=== PATIENT | female | born 1995 | race African-American/Black ===

== ENCOUNTER 2016-08-12 15:08 | Emergency (ER) | payer SELFPAY ==
--- NOTE | 2016-08-12 15:45 | ER Document Report ---
ED Medical Screen (RME) - General Stated Complaint: THROAT PAIN Notes: Patient complains of sore throat and stuffy nose for 2 days. No fever. Occasional productive cough per patient. Patient states she wakes up with dry mouth and sore throat. His taken to help with symptoms. Pain since state she has had no period since May, home test negative. I have greeted and performed a rapid initial assessment of this patient. A comprehensive ED assessment and evaluation of the patient, analysis of test results and completion of the medical decision making process will be conducted by additional ED providers. TRAVEL OUTSIDE OF THE [place] IN LAST 30 DAYS: No - Related Data Allergies/Adverse Reactions: walnut Allergy (Verified 08/12/16 15:48) tongue numbness Past Medical History - Social History Family history: Arthritis, Malignancy, Other - scoliosis Pulmonary Medical History: Reports: Hx Asthma, Hx Bronchitis Neurological Medical History: Reports: Hx Migraine Renal/ Medical History: Reports: Hx Ectopic - Immunizations Immunizations up to date: Yes Hx Diphtheria, Pertussis, Tetanus Vaccination: Yes Physical Exam - Vital signs Vitals: Temp Pulse Resp BP Pulse Ox 98.1 F 100 14 111/65 99 08/12/16 15:11 08/12/16 15:11 08/12/16 15:11 08/12/16 15:11 08/12/16 15:11 - HEENT Notes: Throat appears normal, no adenopathy. No respiratory distress. Course - Vital Signs Vital signs: Temp Pulse Resp BP Pulse Ox 98.1 F 100 14 111/65 99 08/12/16 15:11 08/12/16 15:11 08/12/16 15:11 08/12/16 15:11 08/12/16 15:11
--- NOTE | 2016-08-12 19:26 | ER Document Report ---
ED General - General Chief Complaint: Sore Throat Stated Complaint: THROAT PAIN Mode of Arrival: Ambulatory Information source: Patient Notes: 20-year-old female presents with complaints of a sore throat of 3 day duration. Patient denies any fevers or chills nausea vomiting or diarrhea. Patient denies any sick contacts. Patient notes that she is taken tests at home notes she is not but has not had a menses in 3 months. Patient denies any abdominal pain TRAVEL OUTSIDE OF THE [place] IN LAST 30 DAYS: No - HPI Onset: Other - Three-day duration Onset/Duration: Persistent Quality of pain: Sharp Severity: Mild Pain Level: 1 Associated symptoms: Sore throat Exacerbated by: Denies Relieved by: Denies Similar symptoms previously: No Recently seen / treated by doctor: No - Related Data Allergies/Adverse Reactions: walnut Allergy (Verified 08/12/16 15:48) tongue numbness Past Medical History - Social History Smoking Status: Never Smoker Cigarette use (# per day): No Chew tobacco use (# tins/day): No Smoking Education Provided: No Frequency of alcohol use: Occasional Drug Abuse: None Family History: Reviewed & Not Pertinent Patient has suicidal ideation: No Patient has homicidal ideation: No Pulmonary Medical History: Reports: Hx Asthma, Hx Bronchitis Neurological Medical History: Reports: Hx Migraine Renal/ Medical History: Reports: Hx Ectopic . Denies: Hx Peritoneal Dialysis - Immunizations Immunizations up to date: Yes Hx Diphtheria, Pertussis, Tetanus Vaccination: Yes Review of Systems - Review of Systems Notes: REVIEW OF SYSTEMS: CONSTITUTIONAL : Denies fever, chills, or sweats. Denies recent illness. EENT: Admits to sore throat CARDIOVASCULAR: Denies chest pain. Denies palpitations or racing or irregular heart beat. Denies ankle edema. RESPIRATORY: Denies cough, cold, or chest congestion. Denies shortness of breath, difficulty breathing, or wheezing. GASTROINTESTINAL: Denies abdominal pain or distention. Denies nausea, vomiting , or diarrhea. Denies blood in vomitus, stools, or per rectum. Denies black, tarry stools. Denies constipation. GENITOURINARY: Denies difficulty urinating, painful urination, burning, frequency, blood in urine, or discharge. FEMALE GENITOURINARY: Admits to irregular menses MUSCULOSKELETAL: Denies back or neck pain or stiffness. Denies joint pain or swelling. SKIN: Denies rash, lesions or sores. HEMATOLOGIC : Denies easy bruising or bleeding. LYMPHATIC: Denies swollen, enlarged glands. NEUROLOGICAL: Denies confusion or altered mental status. Denies passing out or loss of consciousness. Denies dizziness or lightheadedness. Denies headache. Denies weakness or paralysis or loss of use of either side. Denies problems with gait or speech. Denies sensory loss, numbness, or tingling. Denies seizures. PSYCHIATRIC: Denies anxiety or stress. Denies depression, suicidal ideation, or homicidal ideation. ALL OTHER SYSTEMS REVIEWED AND NEGATIVE. Dictation was performed using [employer] voice recognition software PHYSICAL EXAMINATION: GENERAL: Well-appearing, well-nourished and in no acute distress. HEAD: Atraumatic, normocephalic. EYES: Pupils equal round and reactive to light, extraocular movements intact, conjunctiva are normal. ENT: Nares patent, oropharynx clear without exudates. Moist mucous membranes. NECK: Normal range of motion, supple without lymphadenopathy LUNGS: Breath sounds clear to auscultation bilaterally and equal. No wheezes rales or rhonchi. HEART: Regular rate and rhythm without murmurs ABDOMEN: Soft, nontender, nondistended abdomen. No guarding, no rebound. No masses appreciated. Female : deferred Musculoskeletal: Normal range of motion, no pitting or edema. No cyanosis. NEUROLOGICAL: Cranial nerves grossly intact. Normal speech, normal gait. Normal sensory, motor exams PSYCH: Normal mood, normal affect. SKIN: Warm, Dry, normal turgor, no rashes or lesions noted. Physical Exam - Vital signs Vitals: Temp Pulse Resp BP Pulse Ox 98.1 F 100 14 111/65 99 08/12/16 15:11 08/12/16 15:11 08/12/16 15:11 08/12/16 15:11 08/12/16 15:11 Course - Re-evaluation Re-evalutation: 08/13/16 00:00 Physical examination noted no significant abnormality, rapid strep was negative. Denies any life-threatening issues. Patient will be given follow-up with the health department regarding her irregular menses. Otherwise given that she is had multiple negative tests at home do not believe there is any life -threatening issues requiring further intervention given that she is pain-free and requests to be discharged After performing a Medical Screening Examination, I estimate there is LOW risk for ACUTE CORONARY SYNDROME, RESPIRATORY FAILURE, SEPSIS OR MENINGITIS, thus I consider the discharge disposition reasonable. The patient and I have discussed the diagnosis and risks, and we agree with discharging home with close follow- up. We also discussed returning to the Emergency Department immediately if new or worsening symptoms occur. We have discussed the symptoms which are most concerning (e.g., changing or worsening pain, trouble swallowing or breathing, neck stiffness, fever) that necessitate immediate return. - Vital Signs Vital signs: Temp Pulse Resp BP Pulse Ox 97.6 F 89 18 118/56 L 98 08/12/16 19:47 08/12/16 19:47 08/12/16 19:47 08/12/16 19:47 08/12/16 19:47 Discharge - Discharge Clinical Impression: Sore throat (viral) Condition: Stable Disposition: HOME, SELF-CARE Instructions: Sore Throat ([facility]) Additional Instructions: Please follow up with your pcp in 1-2 days for reevaluation or return immediately if there are any other concerns Forms: Return to Work [facility] - Follow up tomorrow
[2016-08-12 19:59] VITALS: BP 118/56
== END 2016-08-12 19:47 | disposition home or self-care (01) ==
LOC: ER 15:08
DX: J02.8 Acute pharyngitis due to other specified organisms (principal); B97.89 Other viral agents as the cause of diseases classified elsewhere; N92.6 Irregular menstruation, unspecified; J45.909 Unspecified asthma, uncomplicated; Z91.018 Allergy to other foods
CPT/HCPCS: 87070; 87880; 99283